=== PATIENT | male | born 1945 | race Caucasian/White ===

== ENCOUNTER 2018-06-30 15:10 | Inpatient (IN) | payer MEDICARE, OTHER ==
[~2018-06-30] VITALS: Ht 167.6 cm; Wt 85.0 kg
[2018-06-30] MEDS ORDERED: CEFTRIAXONE 1 GM/50 ML (PMX) 50 ML IVPB STA (15:17)
[2018-06-30] MEDS ORDERED: ERGO500013 PO (16:46)
[2018-06-30] MEDS ORDERED: ASPI-817 PO (16:46)
[2018-06-30] MEDS ORDERED: ADV25050 INHALATION (16:47)
[2018-06-30] MEDS ORDERED: FURO80TA3 PO (16:47)
[2018-06-30] MEDS ORDERED: LACT10SO5 PO (16:48)
[2018-06-30] MEDS ORDERED: MULT-105 PO (16:49)
[2018-06-30] MEDS ORDERED: IPRA4AER INHALATION (16:49)
[2018-06-30] MEDS ORDERED: METO-335 PO (16:50)
[2018-06-30] MEDS ORDERED: RIFA550T4 PO (16:51)
[2018-06-30] MEDS ORDERED: ONDA4TAB13 PO (16:51)
[2018-06-30] MEDS ORDERED: SPIR100T4 PO (16:52)
[2018-06-30] MEDS ORDERED: ACET325T33 PO (16:53)
[2018-06-30] MEDS ORDERED: OXYC-279 PO ×2 (16:54→16:56)
[2018-06-30] MEDS ORDERED: BUDE1AMP INHALATION (16:57)
[2018-06-30] MEDS ORDERED: ASC500 PO (16:57)
[2018-06-30] MEDS ORDERED: POLY17PO6 PO (16:58)
[2018-06-30] MEDS ORDERED: MAGN400O19 PO (16:58)
[2018-06-30] MEDS ORDERED: ESCI5TAB PO (16:59)
[2018-06-30] MEDS ORDERED: TRAZ-111 PO (17:00)
[2018-06-30] MEDS ORDERED: BISA10SU55 RC (17:01)
[2018-06-30] MEDS ORDERED: MINE133E23 PR (17:02)
[2018-06-30] MEDS ORDERED: SODIUM CHLORIDE 0.9% 1L BAG IV* STA (17:05)
[2018-06-30] MEDS ORDERED: ONDANSETRON 4 MG INJ IV PRN ×2 (18:00→19:30)
[2018-06-30] MEDS ORDERED: ACETAMINOPHEN 325 MG TAB PO PRN ×2 (18:00→19:30)
--- NOTE | 2018-06-30 19:01 | ERD ---
ER Documentation Chief Complaint Chief Complaint biba,c/o cp today; from SNF, DNR HPI Patient is a 72-year-old male who presents with chest pain. Please note the history and physical exam is limited secondary to the patient's mental status. The patient was brought in by ambulance. He was altered and had substernal chest pain per paramedics. He came from [facility]. The patient is in discussions with family regarding hospice care. The patient had a urine culture that was positive for Klebsiella and was sensitive to ceftriaxone. Upon review of old medical records this is the patient's first visit to the emergency depart ment. The primary doctor from the facility is Dr. Pappas. ROS All systems reviewed and are negative except as per history of present illness. Medications Home Meds Reported Medications Mineral Oil* (Fleet* Mineral Oil Enema) 133 Ml Oil, 133 ML SD NEEDED, ENEMA Q 2DAYS 06/30/18 Bisacodyl (Dulcolax) 10 Mg Supp.rect, 10 MG RC DAILY, SUPP.RECT 06/30/18 Trazodone Hcl* (Trazodone Hcl*) 50 Mg Tablet, 25 MG PO QHS, #30 TAB 06/30/18 Escitalopram Oxalate* (Lexapro*) 5 Mg Tablet, 5 MG PO DAILY, #30 TAB 06/30/18 Magnesium Hydroxide* (Milk Of Magnesia*) 400 Mg/5 Ml Oral.susp, 30 ML PO Q24H PRN for NEEDED, ML 06/30/18 Polyethylene Glycol* (Miralax*) 17 Gm Powd.pack, 17 GM PO BID, #60 PACKET 06/30/18 Budesonide* (Pulmicort*) 1 Mg/2 Ml Ampul.neb, 1 MG INHALATION BID, #60 AMP 06/30/18 Ascorbic Acid (Vitamin C) 500 Mg Tab, 500 MG PO DAILY, TAB 06/30/18 Oxycodone HCl/Acetaminophen (Percocet 5-325 mg Tablet) 1 Each Tablet, 2 EACH PO Q6H PRN for PAIN LEVEL 8-10/10, TAB 06/30/18 Oxycodone HCl/Acetaminophen (Percocet 5-325 mg Tablet) 1 Each Tablet, 1 EACH PO Q6H, TAB FOR PAIN LEVEL 4-8/10 06/30/18 Acetaminophen* (Tylenol*) 325 Mg Tablet, 650 MG PO Q4H PRN for MILD PAIN LEVEL 1-3, TAB 06/30/18 Spironolactone* (Spironolactone*) 100 Mg Tablet, 200 MG PO DAILY, TAB 06/30/18 Rifaximin* (Xifaxan*) 550 Mg Tablet, 550 MG PO BID, TAB 06/30/18 Ondansetron Hcl* (Zofran*) 4 Mg Tab, 4 MG PO Q6H PRN for NAUSEA AND OR VOMITING, TAB 06/30/18 Metoprolol Succinate* (Toprol XL*) 25 Mg Tab.sr.24h, 25 MG PO DAILY, #30 TAB HOLD IF SBP<110 OR HR<60 06/30/18 Multivitamin with Minerals (Multivitamins with Minerals) 1 Each Tablet, 1 EACH PO DAILY, TAB 06/30/18 Albuterol/Ipratropium* (Combivent Respimat*) 20-100 Mcg/Inh - 4 Gm Aer.w.adap, 1 PUFF INHALATION QID, #1 INHALER 06/30/18 Lactulose* (Lactulose*) 10 Gm/15 Ml Solution, 30 ML PO QID, ML 06/30/18 Furosemide* (Furosemide*) 80 Mg Tablet, 80 MG PO BID, #60 TAB 06/30/18 Salmeterol Xinaf/Fluticasone* (Advair*) 250-50 Diskus Inhaler, 1 INH INHALATION BID, #1 INHALER 06/30/18 Ergocalciferol (Vitamin D2) (VITAMIN D2) 50,000 Unit Capsule, 46595 UNIT PO Q WED, CAP 06/30/18 Aspirin* (Aspirin* EC) 81 Mg Tablet.dr, 81 MG PO DAILY, TAB 06/30/18 Allergies Allergies: Coded Allergies: No Known Allergy (Unverified , 06/30/18) PMhx/Soc Hx Miscellaneous Medical Probl: Yes (DEPRESSION, INSOMNIA, LIVER CIRRHOSOS, LI ROSETTE CA) Hx Alcohol Use: No Hx Substance Use: No Hx Tobacco Use: No Smoking Status: Never smoker FmHx Unable to obtain Physical Exam Vitals Vital Signs Date Temp Pulse Resp B/P (MAP) Pulse Ox O2 O2 Flow FiO2 Time Delivery Rate 06/30/18 96.0 95 30 78/61 (67) 95 Nasal 4.0 18:30 Cannula 06/30/18 96.0 98 30 77/60 (66) 100 Nasal 4.0 17:50 Cannula 06/30/18 Nasal 2 16:13 Cannula 06/30/18 96.9 103 35 72/60 (64) 97 16:02 Physical Exam Const: Moderate distress Head: Atraumatic Eyes: Normal Conjunctiva ENT: Dry mucous membranes Neck: Full range of motion. No meningismus. Resp: Clear to auscultation bilaterally Cardio: Tachycardic rate without murmur Abd: Soft, non tender, non distended. Normal bowel sounds Skin: Jaundice Back: No midline or flank tenderness Ext: No cyanosis, or edema Neur: Awake but somnolent Result Diagram: 06/30/18 1613 06/30/18 1613 Results 24 hrs Laboratory Tests Test 06/30/18 16:13 06/30/18 16:31 06/30/18 17:00 White Blood Count 25.3 10^3/ul Red Blood Count 4.95 10^6/ul Hemoglobin 15.4 g/dl Hematocrit 47.9 % Mean Corpuscular Volume 96.8 fl Mean Corpuscular Hemoglobin 31.1 pg Mean Corpuscular 32.2 g/dl Hemoglobin Concent Red Cell Distribution Width 20.2 % Platelet Count 148 10^3/UL Mean Platelet Volume 9.8 fl Immature Granulocytes % 1.100 % Neutrophils % 92.2 % Lymphocytes % 2.3 % Monocytes % 4.0 % Eosinophils % 0.0 % Basophils % 0.4 % Nucleated Red Blood Cells % 0.0 /100WBC Immature Granulocytes # 0.290 10^3/ul Neutrophils # 23.4 10^3/ul Lymphocytes # 0.6 10^3/ul Monocytes # 1.0 10^3/ul Eosinophils # 0.0 10^3/ul Basophils # 0.1 10^3/ul Nucleated Red Blood Cells # 0.0 10^3/ul Pathologist Review (Hematology) YES Prothrombin Time 21.2 Sec Prothrombin Time Ratio 1.7 INR International 1.82 Normalized Ratio Activated Partial Thromboplast 30.6 Sec Time Sodium Level 128 mmol/L Potassium Level 4.6 mmol/L Chloride Level 91 mmol/L Carbon Dioxide Level 15 mmol/L Anion Gap 22 Blood Urea Nitrogen 30 mg/dl Creatinine 1.23 mg/dl Est Glomerular Filtrat mL/min Rate mL/min Glucose Level 85 mg/dl POC Venous Lactate 10.0 mmol/L Calcium Level 9.3 mg/dl Total Bilirubin 2.2 mg/dl Direct Bilirubin 0.70 mg/dl Indirect Bilirubin 1.5 mg/dl Aspartate Amino Transf (AST/SGOT) 77 IU/L Alanine 40 IU/L Aminotransferase (ALT/SGPT) Alkaline Phosphatase 438 IU/L Troponin I 0.062 ng/ml Total Protein 7.6 g/dl Albumin 2.7 g/dl Globulin 4.90 g/dl Albumin/Globulin Ratio 0.55 Ammonia 14 umol/l Urine Color [place] Urine Clarity CLOUDY Urine pH 6.0 Urine Specific [place] 1.010 Urine Ketones NEGATIVE mg/dL Urine Nitrite POSITIVE mg/dL Urine Bilirubin NEGATIVE mg/dL Urine Urobilinogen 1+ mg/dL Urine Leukocyte Esterase 3+ Debra/ul Urine Microscopic RBC 39 /HPF Urine Microscopic WBC 126 /HPF Urine Bacteria MANY /HPF Urine Yeast (Budding) FEW /HPF Urine Hemoglobin 3+ mg/dL Urine Glucose NEGATIVE mg/dL Urine Total Protein NEGATIVE mg/dl Current Medications Medications Dose Sig/Lisa Start Time Status Last (Trade) Ordered Route PRN Stop Time Admin Dose Reason Admin Ceftriaxone 50 ml @ ONCE STAT 06/30/18 DC 06/30/18 Sodium 100 mls/hr IVPB 15:17 06/30/18 15:17 15:46 Sodium 2,550 ml BOLUS OVER 2 06/30/18 DC 06/30/18 Chloride HOURS STAT 17:05 06/30/18 17:14 (NS) IV* 17:06 Ondansetron 4 mg BRIDGE ORDER 06/30/18 HCl (Zofran PRN IV 18:00 07/01/18 Inj) NAUSEA/VOMITI 17:59 NG 650 mg ER BRIDGE 06/30/18 Acetaminophen PRN PO 18:00 07/01/18 (Tylenol .MILD PAIN 17:59 Tab) 1-3 OR TEMP Procedures/MDM EKG read by me: Rate/Rhythm: Tachycardia Intervals: Normal Impression: Tachycardia without ST elevations Chest x-ray shows no pneumonia per radiology. Sepsis Documentation: Patient's infectious symptoms have not stabilized and the patient is at risk of rapid decompensation. The patient will be admitted for careful hydration, antibiotic therapy, and infectious source control. SEVERE SEPSIS CRITERIA: Infectious source: Cystitis End organ damage indicated by: Lactate greater than 2 SEPSIS MANAGEMENT Time of recognition of sepsis: 1612 Time of recognition of severe sepsis: 161. Time of recognition of septic shock: 1613. 3 HOUR BUNDLE Blood cultures x 2 before broad-spectrum antibiotics: Yes 30 ml/kg NS bolus completed Initial lactate 10.0 Repeat lactate pending SEPTIC SHOCK ASSESSMENT: Yes lactic acid > 4.0 No persistent hypotension (SBP < 90 or 40 mmHg drop, MAP < 65) despite 30 mL/kg IV fluid bolus VOLUME REASSESSMENT FOR SEPTIC SHOCK: Reevaluation Time: 1830 Temp 96.0, BP 78/61, HR 95, RR 30, Pox 95% Heart regular rate & rhythm Lungs no crackles Skin jaundice Cap Refill less than 2 seconds Peripheral pulses radially present PERSISTENT HYPOTENSION TREATMENT: Comfort care yes, the family has decided the patient would be admitted to inpatient hospice care Central line, discussed with family regarding central line placement and they would not like any invasive procedures such as central line at this time, patient is DNR/DNI Vasopressor started not started as the patient will not receive a central line and is going to be placed on hospice care I considered further perfusion assessment with CVP measurement, SCVO2, bedside ultrasound volume assessment, passive leg raise, trial of further fluid bolus. And proceeded with 30 ml/kg fluid bolus of NSS, broad spectrum antibiotics, and admission to inpatient hospice. I do long discussion with the family regarding goals of care. The patient has been made a DNR/DNI. They have refused central line and I agree with this decision. The patient got fluids and antibiotics while in the emergency department. Unfortunately the IV pulled out and we are unable to place another IV. However given the fact the patient is being admitted to inpatient hospice we will keep him comfortable and I do not believe poking him for further IV start is necessary at this time. The family's ultimate goal is to take the patient home for home hospice. CRITICAL CARE Critical care time 35 minutes Emergent fluid management while maintaining close respiratory support. Provision of immediate and broad-spectrum antibiotic therapy. Simultaneous assessment for possible sources in order to direct targeted therapy. Consideration for invasive and chemical support to prevent cardiopulmonary collapse. Critical care time is independent of procedures performed. Departure Diagnosis: Primary Impression: Septic shock Additional Impressions: Hospice care Cystitis Condition: Serious LEANN LUCIANO MD June 30, 2018 19:01
--- NOTE | 2018-06-30 19:09 | HP ---
Date/Time of Note Date/Time of Note DATE: 06/30/18 TIME: 19:01 Assessment/Plan VTE Prophylaxis SCD applied (from Nsg): Yes Pharmacological prophylaxis: NA/contraindicated Pharm contraindication: liver dx Lines/Catheters IV Catheter Type (from Nrsg): Saline Lock Assessment/Plan Hospital Course 1. Sepsis secondary to UTI Rocephin IV IV fluids 2. Debility Patient resides in a snf, family is requesting for inpatient hospice 3. Cirrhosis Continue home rifaximin, lactulose, Aldactone and Lasix Result Diagram: 06/30/18 1613 06/30/18 1613 Results 24hrs Laboratory Tests Test 06/30/18 16:13 06/30/18 16:31 06/30/18 17:00 White Blood Count 25.3 H Red Blood Count 4.95 Hemoglobin 15.4 Hematocrit 47.9 Mean Corpuscular Volume 96.8 Mean Corpuscular Hemoglobin 31.1 Mean Corpuscular Hemoglobin Concent 32.2 Red Cell Distribution Width 20.2 H Platelet Count 148 Mean Platelet Volume 9.8 Immature Granulocytes % 1.100 H Neutrophils % 92.2 H Lymphocytes % 2.3 L Monocytes % 4.0 Eosinophils % 0.0 Basophils % 0.4 Nucleated Red Blood Cells % 0.0 Immature Granulocytes # 0.290 H Neutrophils # 23.4 H Lymphocytes # 0.6 L Monocytes # 1.0 H Eosinophils # 0.0 Basophils # 0.1 Nucleated Red Blood Cells # 0.0 Pathologist Review (Hematology) YES Prothrombin Time 21.2 H Prothrombin Time Ratio 1.7 INR International Normalized Ratio 1.82 Activated Partial Thromboplast Time 30.6 Sodium Level 128 L Potassium Level 4.6 Chloride Level 91 L Carbon Dioxide Level 15 L Anion Gap 22 H Blood Urea Nitrogen 30 H Creatinine 1.23 Est Glomerular Filtrat Rate mL/min Glucose Level 85 POC Venous Lactate 10.0 *H Calcium Level 9.3 Total Bilirubin 2.2 H Direct Bilirubin 0.70 H Indirect Bilirubin 1.5 H Aspartate Amino Transf (AST/SGOT) 77 H Alanine Aminotransferase (ALT/SGPT) 40 Alkaline Phosphatase 438 H Troponin I 0.062 Total Protein 7.6 Albumin 2.7 L Globulin 4.90 H Albumin/Globulin Ratio 0.55 Ammonia 14 Urine Color FLACA Urine Clarity CLOUDY A Urine pH 6.0 Urine Specific [place] 1.010 Urine Ketones NEGATIVE Urine Nitrite POSITIVE A Urine Bilirubin NEGATIVE Urine Urobilinogen 1+ H Urine Leukocyte Esterase 3+ H Urine Microscopic RBC 39 H Urine Microscopic WBC 126 H Urine Bacteria MANY A Urine Yeast (Budding) FEW A Urine Hemoglobin 3+ H Urine Glucose NEGATIVE Urine Total Protein NEGATIVE HPI/ROS Admit Date/Time Admit Date/Time June 30, 2018 Hx of Present Illness Patient is a 72-year-old male with history of debility likely cirrhosis, patient resides in a snf and was brought to the hospital for sepsis as well as consideration for inpatient hospice. Patient is unable to provide a history and family is currently not bedside. In the ER UA was consistent with UTI and patient did have evidence of sepsis. ROS Unable to obtain PMH/Family/Social Past Medical History Debility Medications Current Medications Ondansetron HCl (Zofran Inj) 4 mg BRIDGE ORDER PRN IV NAUSEA/VOMITING; Start 06/30/18 at 18:00; Stop 07/01/18 at 17:59 Acetaminophen (Tylenol Tab) 650 mg ER BRIDGE PRN PO .MILD PAIN 1-3 OR TEMP; St art 06/30/18 at 18:00; Stop 07/01/18 at 17:59 Coded Allergies: No Known Allergy (Unverified , 06/30/18) Family History Significant Family History: no pertinent family hx Social History Alcohol Use: none Smoking Status: Never smoker Drug Use: none Exam/Review of Systems Vital Signs Vitals Vital Signs Date Temp Pulse Resp B/P (MAP) Pulse Ox O2 O2 Flow FiO2 Time Delivery Rate 06/30/18 96.0 95 30 78/61 (67) 95 Nasal 4.0 18:30 Cannula Exam Constitutional: alert Respiratory: clear to auscultation Cardiovascular: regular rate and rhythm Gastrointestinal: soft; No distended Musculoskeletal: No nl extremities to inspection MIGUEL DOUGHERTY June 30, 2018 19:09
[2018-06-30] MEDS ORDERED: HYDROCODONE/APAP (5/325) TAB PO PRN (19:30)
[2018-06-30] MEDS ORDERED: morphine 2 MG INJ IV PRN (19:30)
[2018-06-30] MEDS ORDERED: NACL 0.9% 3 ML SYG IV SCH (19:30)
[2018-06-30] MEDS ORDERED: traZODone 50 MG TAB PO SCH (21:00)
[2018-06-30] MEDS: FUROSEMIDE 40 MG TAB PO SCH (21:00)
[2018-06-30] MEDS: RIFAXIMIN 550 MG TAB PO SCH (21:27)
[2018-06-30] MEDS: LACTULOSE 30ML CUP PO SCH (21:34)
[2018-07-01] VITALS (8 sets, daily range): BP systolic 74–101; BP diastolic 52–69; PULSE 62–114; RESP 14–20; Ht 167.6 cm; Wt 85.0 kg
[2018-07-01] MEDS ORDERED: morphine 10 MG INJ IM ONE
[2018-07-01] MEDS ORDERED: SOD CHLORIDE 0.9% 1,000 ML IV SCH (00:30)
[2018-07-01] MEDS: LACTULOSE 30ML CUP PO SCH ×2 (09:00→12:28)
[2018-07-01] MEDS ORDERED: SPIRONOLACTONE 50 MG TAB PO SCH (09:00)
[2018-07-01] MEDS: FUROSEMIDE 40 MG TAB PO SCH (09:00)
[2018-07-01] MEDS: RIFAXIMIN 550 MG TAB PO SCH (09:00)
[2018-07-01] MEDS ORDERED: ESCITALOPRAM 10 MG TAB PO SCH (09:00)
[2018-07-01] MEDS ORDERED: LIDOCAINE 1% (MPF) 5 ML VIAL SC ONE (10:00)
[2018-07-01] MEDS ORDERED: morphine 2 MG INJ IM PRN (11:30)
--- NOTE | 2018-07-01 12:45 | PN ---
Date/Time of Note Date/Time of Note DATE: 07/01/18 TIME: 12:38 Assessment/Plan VTE Prophylaxis Risk score (from [facility])>0 risk: 7 SCD applied (from [facility]): Yes Pharmacological prophylaxis: other Pharm contraindication: liver dx Lines/Catheters IV C[facility]ter Type [facility]from [facility] Saline Lock Urinary Cath still in place: Yes Reason Cath still needed: other (indicate) Assessment/Plan Assessment/Plan 1. Urinary tract infection, on rocephin, follow up with cultures 2. Sepsis, IVF, antibiotics 3. Lactic acidosis, IVF 4. Metabolic encephalopathy, sepsis and hepatic, follow up with ammonia level 5. Hepatic encephalopathy, on rifaximin and lactulose 6. Liver cirrhosis, advanced, poor prognosis, hospice eval 7. Coagulopathy, due to liver disease 8. Hyponatremia, follow up with Na 9. Malnutrition 10. Code status: DNR Result Diagram: 06/30/18 1613 06/30/18 1613 Results 24hrs Laboratory Tests Test 06/30/18 16:13 06/30/18 16:31 06/30/18 17:00 White Blood Count 25.3 H Red Blood Count 4.95 Hemoglobin 15.4 Hematocrit 47.9 Mean Corpuscular Volume 96.8 Mean Corpuscular Hemoglobin 31.1 Mean Corpuscular Hemoglobin Concent 32.2 Red Cell Distribution Width 20.2 H Platelet Count 148 Mean Platelet Volume 9.8 Immature Granulocytes % 1.100 H Neutrophils % 92.2 H Lymphocytes % 2.3 L Monocytes % 4.0 Eosinophils % 0.0 Basophils % 0.4 Nucleated Red Blood Cells % 0.0 Immature Granulocytes # 0.290 H Neutrophils # 23.4 H Lymphocytes # 0.6 L Monocytes # 1.0 H Eosinophils # 0.0 Basophils # 0.1 Nucleated Red Blood Cells # 0.0 Pathologist Review (Hematology) YES Prothrombin Time 21.2 H Prothrombin Time Ratio 1.7 INR International Normalized Ratio 1.82 Activated Partial Thromboplast Time 30.6 Sodium Level 128 L Potassium Level 4.6 Chloride Level 91 L Carbon Dioxide Level 15 L Anion Gap 22 H Blood Urea Nitrogen 30 H Creatinine 1.23 Est Glomerular Filtrat Rate mL/min Glucose Level 85 POC Venous Lactate 10.0 *H Calcium Level 9.3 Total Bilirubin 2.2 H Direct Bilirubin 0.70 H Indirect Bilirubin 1.5 H Aspartate Amino Transf (AST/SGOT) 77 H Alanine Aminotransferase (ALT/SGPT) 40 Alkaline Phosphatase 438 H Troponin I 0.062 Total Protein 7.6 Albumin 2.7 L Globulin 4.90 H Albumin/Globulin Ratio 0.55 Ammonia 14 Urine Color [place] Urine Clarity CLOUDY A Urine pH 6.0 Urine Specific [place] 1.010 Urine Ketones NEGATIVE Urine Nitrite POSITIVE A Urine Bilirubin NEGATIVE Urine Urobilinogen 1+ H Urine Leukocyte Esterase 3+ H Urine Microscopic RBC 39 H Urine Microscopic WBC 126 H Urine Bacteria MANY A Urine Yeast (Budding) FEW A Urine Hemoglobin 3+ H Urine Glucose NEGATIVE Urine Total Protein NEGATIVE Subjective 24 Hr Interval Summary Free Text/Dictation lethargic, not follow commends, moaning Exam/Review of Systems Exam Vitals Vital Signs Date Temp Pulse Resp B/P (MAP) Pulse Ox O2 O2 Flow FiO2 Time Delivery Rate 07/01/18 Nasal 4.0 09:41 Cannula 07/01/18 110 16 94/60 (71) 99 09:23 07/01/18 96.7 03:52 Intake and Output 06/30/18 06/30/18 07/01/18 1515:00 23:00 07:00 OutputOutput Total 500 ml BalanceBalance -500 ml Constitutional: non-verbal, other (confused) Head: normocephalic Eyes: nl conjunctiva, EOMI, nl lids, PERRL ENMT: nl external ears & nose, nl lips & teeth, nl nasal mucosa & septum Neck: supple Respiratory: clear to auscultation Cardiovascular: regular rate and rhythm, nl pulses; No bruits, No diastolic murmur, No edema, No gallop, No irregular rhythm, No jugular venous distention (JVD), No murmurs/extra sounds, No rub, No systolic murmur, No S3, No S4, No other Gastrointestinal: soft, nl liver, spleen, bowel sounds Musculoskeletal: nl extremities to inspection Extremities: normal pulses; No calf tenderness, No cyanosis, No clubbing, No edema, No pitting pedal edema, No palpable cord Neurological: confused, lethargic Results Results 24hrs Laboratory Tests Test 06/30/18 16:13 06/30/18 16:31 06/30/18 17:00 White Blood Count 25.3 H Red Blood Count 4.95 Hemoglobin 15.4 Hematocrit 47.9 Mean Corpuscular Volume 96.8 Mean Corpuscular Hemoglobin 31.1 Mean Corpuscular Hemoglobin Concent 32.2 Red Cell Distribution Width 20.2 H Platelet Count 148 Mean Platelet Volume 9.8 Immature Granulocytes % 1.100 H Neutrophils % 92.2 H Lymphocytes % 2.3 L Monocytes % 4.0 Eosinophils % 0.0 Basophils % 0.4 Nucleated Red Blood Cells % 0.0 Immature Granulocytes # 0.290 H Neutrophils # 23.4 H Lymphocytes # 0.6 L Monocytes # 1.0 H Eosinophils # 0.0 Basophils # 0.1 Nucleated Red Blood Cells # 0.0 Pathologist Review (Hematology) YES Prothrombin Time 21.2 H Prothrombin Time Ratio 1.7 INR International Normalized Ratio 1.82 Activated Partial Thromboplast Time 30.6 Sodium Level 128 L Potassium Level 4.6 Chloride Level 91 L Carbon Dioxide Level 15 L Anion Gap 22 H Blood Urea Nitrogen 30 H Creatinine 1.23 Est Glomerular Filtrat Rate mL/min Glucose Level 85 POC Venous Lactate 10.0 *H Calcium Level 9.3 Total Bilirubin 2.2 H Direct Bilirubin 0.70 H Indirect Bilirubin 1.5 H Aspartate Amino Transf (AST/SGOT) 77 H Alanine Aminotransferase (ALT/SGPT) 40 Alkaline Phosphatase 438 H Troponin I 0.062 Total Protein 7.6 Albumin 2.7 L Globulin 4.90 H Albumin/Globulin Ratio 0.55 Ammonia 14 Urine Color [place] Urine Clarity CLOUDY A Urine pH 6.0 Urine Specific [place] 1.010 Urine Ketones NEGATIVE Urine Nitrite POSITIVE A Urine Bilirubin NEGATIVE Urine Urobilinogen 1+ H Urine Leukocyte Esterase 3+ H Urine Microscopic RBC 39 H Urine Microscopic WBC 126 H Urine Bacteria MANY A Urine Yeast (Budding) FEW A Urine Hemoglobin 3+ H Urine Glucose NEGATIVE Urine Total Protein NEGATIVE Medications Medication Current Medications Escitalopram Oxalate (Lexapro) 5 mg DAILY PO ; Start 07/01/18 at 09:00 Furosemide (Lasix) 80 mg BID PO ; Start 06/30/18 at 21:00 Lactulose (Enulose) 20 gm QID PO Last administered on 06/30/18at 21:34; Admin Dose 20 GM; Start 06/30/18 at 21:00 Rifaximin (Xifaxan) 550 mg BID PO Last administered on 06/30/18at 21:27; Admin Dose 550 MG; Start 06/30/18 at 21:00 Spironolactone (Aldactone) 200 mg DAILY PO ; Start 07/01/18 at 09:00 Trazodone HCl (Desyrel) 25 mg QHS PO Last administered on 06/30/18at 21:34; Admin Dose 25 MG; Start 06/30/18 at 21:00 IV Flush (NS 3 ml) 3 ml PER PROTOCOL IV ; Start 06/30/18 at 19:30 Ondansetron HCl (Zofran Inj) 4 mg Q6H PRN IV NAUSEA/VOMITING; Start 06/30/18 at 19:30 Acetaminophen (Tylenol Tab) 650 mg Q6H PRN PO .PAIN 1-3 OR TEMP; Start 06/30/18 at 19:30 Acetaminophen/ Hydrocodone Bitart ([place] (5/325)) 1 tab Q6H PRN PO .MOD PAIN 4- 6 Last administered on 06/30/18at 21:34; Admin Dose 1 TAB; Start 06/30/18 at 19:30 Ceftriaxone Sodium 50 ml @ 100 mls/hr Q24H IVPB ; Start 07/01/18 at 15:00 Morphine Sulfate (morphine) 2 mg Q3H PRN IM SEVERE PAIN LEVEL 7-10 Last administered on 07/01/18 11:35; Admin Dose 2 MG; Start 07/01/18 at 11:30 JADA AG MD July 01, 2018 12:45
[2018-07-01] MEDS ORDERED: morphine 2 MG INJ IV PRN (13:00)
[2018-07-01] MEDS ORDERED: POTASSIUM CHLORIDE 10 MEQ in DEXTROSE 5%-0.9% NACL 1,000 ML IV SCH (14:30)
[2018-07-01] MEDS ORDERED: CEFTRIAXONE 1 GM/50 ML (PMX) 50 ML IVPB SCH (15:00)
[2018-07-01] MEDS ORDERED: BISACODYL 10 MG SUPP PR PRN (15:30)
[2018-07-01] MEDS ORDERED: ACETAMINOPHEN 650 MG SUPP PR PRN (15:30)
[2018-07-01] MEDS ORDERED: LORAZEPAM 2 MG INJ IV PRN (15:30)
[2018-07-01] MEDS ORDERED: ATROPINE 1% 5 ML OPH SL PRN (15:30)
[2018-07-01] MEDS: morphine (DRIP) 100 MG/100 ML 100 ML IV SCH ×2 (16:46→17:55)
[2018-07-01] MEDS ORDERED: BALSAM PERU/CASTOR OIL 60 GM TUBE TOP SCH (21:00)
--- NOTE | 2018-07-02 01:55 | HP ---
DATE OF ADMISSION: 06/30/2018 PRIMARY HOSPICE DIAGNOSES: 1. Hepatic encephalopathy. 2. Comorbid urosepsis. 3. Hyponatremia. 4. Malnutrition. CHIEF COMPLAINT AND HISTORY OF PRESENT ILLNESS: The patient is a 72-year-old gentleman, a [facility]. The patient has history of cirrhosis of liver. Etiology unknown. The patient also was debilitated and [facility] due to urosepsis. The patient's BP upon arrival to [facility] was 78/61. The patient was requiring 4 liters nasal cannula and had O2 sat of 95%. UA was consist ent with UTI. Blood cultures were negative. The patient's white count initially was 25,000 and BUN was 30, creatinine was 1.2. Lactic acid was 10. The patient also had a bilirubin of 2.2, AST 77, AL T 40, alkaline phosphatase 438, albumin only 2.7. Sodium was 128. The patient was referred to [facility] and was deemed appropriate for [facility] level of care. The patient could not have any useful history d ue to altered mental status. PAST MEDICAL HISTORY: As stated above. The patient's medical records also revealed that he has poss ible liver cancer and cryptogenic cirrhosis of liver. ALLERGIES: NONE. SOCIAL HISTORY: Could not be obtained. FAMILY HISTORY: Could not be obtained. PHYSICAL EXAMINATION: GENERAL: The patient is lethargic and no useful communication possible. VITAL SIGNS: Temperature 97.8, pulse 104, respirations 20, blood pressure 74/52, O2 saturation 95% o n 4 liters nasal cannula. HEENT: No eye discharge or redness. Conjunctiva normal. Nose and ear normal. Oropharynx grossly n egative. NECK: No JVD, no carotid bruit. CHEST: Diminished air entry at bases. No use of accessory muscles. CARDIOVASCULAR: S1, S2 normal, no murmur. ABDOMEN: Soft. EXTREMITIES: No edema. NEUROLOGIC: The patient is lethargic and no useful communication possible. IMPRESSION: 1. Metabolic encephalopathy due to cryptogenic cirrhosis of liver and liver cancer. 2. Sepsis due to urinary tract infection. 3. Incomplete data. PLAN: The patient will be admitted under [facility] level of care and will be started on morphine drip at 1 mg an hour, which will be titrated up. The patient will also be given Ativan 1 mg q.4h hour p.r.n. atropine drops 2 drops q.4 p.r.n. for secretions and Zofran 4 mg q.6h p.r.n. for nausea, vomiting. T ylenol suppository for fever and mild pain. Dulcolax suppository p.r.n. for constipation. We will o ptimize comfort care as needed. The patient is terminally ill and appropriate for [facility]IP level of care. Dictated By: JENSEN GOFF/KYLAH Conf#: [id number] DID#: [id number] CC: MIGUEL DOUGHERTY MD;*EndCC*
--- NOTE | 2018-07-02 20:06 | DES ---
DATE OF ADMISSION: 06/30/2018 DATE OF : 07/02/2018 CAUSE OF : 1. Cryptogenic cirrhosis of liver. 2. Liver cancer. COMORBIDITY: Recent sepsis due to UTI. REASON FOR ADMISSION: The patient was 72-year-old gentleman with history of cryptogenic cirrhosis of liver and liver cancer. Details are not available. The patient was brought into hospital from [facility] due to hypotension. The patient was diagnosed with urosepsis and was given IV a ntibiotic, pending cultures. The patient's family requested hospice evaluation due to declining over all condition. The patient was referred to hospice. The patient's initial white count upon admissio n was 25.3. Chemistry revealed sodium of 128, potassium 4.6, BUN 30, creatinine 1.2. Lactic acid wa s 10. Urine was growing Klebsiella oxytoca which was intermediately sensitive to third generation ce phalosporin. The patient was referred to hospice and on the day of arrival to the hospital, the makayla ent was hypotensive with blood pressure in 70s. The patient was started on morphine drip at 1 mg an hour for further titration as needed. The patient was also started on Ativan 1 mg q.4 hours p.r.n. f or terminal anxiety, atropine 2 drops q.4 p.r.n. for secretion and Zofran 4 mg q.6 p.r.n. for nausea and vomiting. The patient has declined and his morphine dose had to be increased to 4 mg an hour. T he patient at 2:51 a.m. on 07/02/2018 was noted to have no pulse or respirations. There were no hear t sounds. The patient's pupils are fixed and dilated. The patient was pronounced at 2:51 a.m. The patient's family was at bedside. Dictated By: JENSEN GOFF/KYLAH Conf#: [id number] DID#: [id number] CC: JADA AG MD; MIGUEL DOUGHERTY MD;*EndCC*
== END 2018-07-02 05:30 | disposition expired | DRG 871 ==
LOC: E/R 15:10 → 6WM 17:47 → UNDOADMIN 22:32 → EDBEDREQSVC 22:52 → MS1 07-01 20:10
PROVIDERS: ADMIT Internal Medicine; ATTEND Internal Medicine
PROC: 02HV33Z Insertion of Infusion Device into Superior Vena Cava, Percutaneous Approach (ICD-10-PCS; principal; 2018-07-01)
PROC: B548ZZA Ultrasonography of Superior Vena Cava, Guidance (ICD-10-PCS; 2018-07-01)
DX: A41.9 Sepsis, unspecified organism (principal); R65.21 Severe sepsis with septic shock; N39.0 Urinary tract infection, site not specified; E87.1 Hypo-osmolality and hyponatremia; E46 Unspecified protein-calorie malnutrition; E87.2 Acidosis; K72.90 Hepatic failure, unspecified without coma; K74.69 Other cirrhosis of liver; Z66 Do not resuscitate; B96.89 Other specified bacterial agents as the cause of diseases classified elsewhere; Z68.30 Body mass index [BMI] 30.0-30.9, adult; Z79.82 Long term (current) use of aspirin
CPT/HCPCS: 36415; 36569; 71045; 76937; 80048; 80053; 81001; 82140; 83605; 83735; 84100; 84484; 85025; 85610; 85730; 87081; 87086; 92610; 93005; 96374; J0696; J2270; J3480; J7030; J7042